=== PATIENT | female | born 1965 | race Caucasian/White ===

== ENCOUNTER → 2018-12-06 10:30 | Outpatient (CLI) | payer OTHER, SELFPAY ==
--- NOTE | 2018-12-06 | DI.RAD.S_ITS ---
PROCEDURE: FL BARIUM SWALLOW INDICATIONS: Dyskinesia of esophagus COMPARISON: None. FINDINGS: Function: There is normal esophageal peristalsis. There was moderate spontaneous and elicited gastroesophageal reflux. Morphology: Air-contrast images demonstrate normal mucosal morphology. Single contrast views show no esophageal strictures, extrinsic mass effects, or diverticula. Limited images of the stomach demonstrate normal appearance. IMPRESSION: Moderate spontaneous and elicited gastroesophageal reflux without evidence of gastric or esophageal mass, or esophageal stricture or erosions. No aspiration seen. Dictated by: Umang Campos M.D. on 12/06/2018 at 11:51 Approved by: Umang Campos M.D. on 12/06/2018 at 11:52
== END ==
PROVIDERS: PCP Family Medicine; Visit Provider Family Medicine
DX: K22.4 Dyskinesia of esophagus (principal); K21.9 Gastro-esophageal reflux disease without esophagitis
CPT/HCPCS: 74220

== ENCOUNTER → 2019-09-18 10:38 | Outpatient (CLI) | payer OTHER, SELFPAY | PROVIDERS: PCP Family Medicine; Referring Provider Physician Assistant; Visit Provider Physician Assistant | DX: Z01.83 Encounter for blood typing (principal) | CPT/HCPCS: 36415; 86900; 86901 ==

== ENCOUNTER → 2019-12-02 13:58 | Outpatient (CLI) | payer OTHER, MEDICAID, SELFPAY ==
--- NOTE | 2019-12-02 14:28 | DI.MG.S_ITS ---
Patient Name: TANNER YUEN date: 1965 Sex: F Attending Physician: Erwin Indications: Date: 12/02/2019 14:26 At the request of: ALMAS JOSE Procedure: MM screening mammo BI BILATERAL DIGITAL SCREENING MAMMOGRAM 3D/2D WITH CAD: 12/02/2019 CLINICAL: Routine screening. Comparison is made to exams dated: 03/05/2017 mammogram, 11/08/2014 mammogram - [facility], and 02/09/2013 mammogram - [facility]. The tissue of both breasts is heterogeneously dense. This may lower the sensitivity of mammography. Current study was also evaluated with a Computer Aided Detection (CAD) system. No significant masses, calcifications, or other findings are seen in either breast. There has been no significant interval change. IMPRESSION: NEGATIVE There is no mammographic evidence of malignancy. A 1 year screening mammogram is recommended. This exam was interpreted at Station ID: [id number]. NOTE: For mammograms, a report in lay terms will be sent to the patient. Approximately 15% of breast malignancies will not be visualized mammographically. In the management of a palpable breast mass, a negative mammogram must not discourage biopsy of a clinically suspicious lesion. Electronically Signed By: Cooper puente/rajwinder:12/04/2019 09:20:39 letter sent: Normal Exam ACR BI-RADS Category 1: Negative 3341F
== END ==
PROVIDERS: PCP Family Medicine; Referring Provider Family Medicine; Visit Provider Family Medicine
DX: Z12.31 Encounter for screening mammogram for malignant neoplasm of breast (principal)
CPT/HCPCS: 77063; 77067

== ENCOUNTER → 2020-07-21 15:00 | Outpatient (CLI) | payer OTHER, MEDICAID, SELFPAY ==
--- NOTE | 2020-07-21 15:02 | DI.RAD.S_ITS ---
PROCEDURE: XR LUMBAR SPINE 2-3V INDICATIONS: worsening low back pain TECHNIQUE: 3 views of the lumbar spine were acquired. COMPARISON: None. FINDINGS: Bones: 5 [id number] vertebrae are present. Vertebral body heights are maintained. There is minimal dextrocurvature of the lumbar spine. Intervertebral disc spaces are maintained. There is minimal endplate degenerative changes of the lumbar spine. Mild facet arthropathy worse at the lumbosacral junction. Soft tissues: Overlying bowel gas pattern is normal. Pelvic phleboliths. IMPRESSION: Mild multilevel lumbar spondylopathy without evidence of an acute osseous abnormality. Dictated by: on 07/21/2020 at 14:15 Approved by: on 07/21/2020 at 14:18
== END ==
PROVIDERS: PCP Physician Assistant; Referring Provider Physician Assistant; Visit Provider Physician Assistant
DX: M54.5 Low back pain (principal); M48.8X6 Other specified spondylopathies, lumbar region
CPT/HCPCS: 72100

== ENCOUNTER → 2021-01-03 16:06 | Outpatient (CLI) | payer OTHER, SELFPAY | PROVIDERS: PCP Physician Assistant; Visit Provider Physician Assistant | DX: R30.0 Dysuria (principal) | CPT/HCPCS: 87077; 87086; 87186 ==

== ENCOUNTER → 2021-06-20 11:12 | Outpatient (CLI) | payer OTHER, SELFPAY ==
--- NOTE | 2021-06-20 11:13 | DI.MG.S_ITS ---
BILATERAL DIGITAL SCREENING MAMMOGRAM 3D/2D WITH CAD: 06/20/2021 CLINICAL: Routine screening. Comparison is made to exams dated: 12/02/2019 mammogram, 03/05/2017 mammogram, and 11/08/2014 mammogram - [facility]. The tissue of both breasts is heterogeneously dense. This may lower the sensitivity of mammography. Current study was also evaluated with a Computer Aided Detection (CAD) system. No significant masses, calcifications, or other findings are seen in either breast. There has been no significant interval change. IMPRESSION: NEGATIVE There is no mammographic evidence of malignancy. A 1 year screening mammogram is recommended. This exam was interpreted at Station ID: [id number]. NOTE: For mammograms, a report in lay terms will be sent to the patient. Approximately 15% of breast malignancies will not be visualized mammographically. In the management of a palpable breast mass, a negative mammogram must not discourage biopsy of a clinically suspicious lesion. Electronically Signed By: Tristan Browning acr/penrad:06/20/2021 12:07:59 letter sent: Normal Exam ACR BI-RADS Category 1: Negative 3341F
== END ==
PROVIDERS: PCP Physician Assistant; Referring Provider Physician Assistant; Visit Provider Physician Assistant
DX: Z12.31 Encounter for screening mammogram for malignant neoplasm of breast (principal)
CPT/HCPCS: 77063; 77067

== ENCOUNTER → 2021-07-29 13:55 | Outpatient (CLI) | payer OTHER, SELFPAY | PROVIDERS: PCP Physician Assistant; Visit Provider Physician Assistant | DX: N39.0 Urinary tract infection, site not specified (principal) | CPT/HCPCS: 87077; 87086; 87186 ==

== ENCOUNTER → 2021-09-15 13:12 | Outpatient (CLI) | payer OTHER, MEDICAID, SELFPAY ==
[2021-09-15 20:29] LABS: Amorphous Sediment Urine 3+; Bacteria Urine Few (2-10); Culture Indicated Urine Cult Not Indicated; RBC Urine 1-5/HPF (0-5/HPF); Sperm Urine 2; Squamous Epithelial Cell Urine 10-30 /HPF (0-5/HPF); WBC Urine 5-10/HPF (0-5/HPF)
== END ==
PROVIDERS: PCP Physician Assistant; Visit Provider Family Medicine
DX: N39.0 Urinary tract infection, site not specified (principal)
CPT/HCPCS: 81015; 87077; 87086; 87186

== ENCOUNTER → 2022-08-12 13:28 | Outpatient (CLI) | payer OTHER, MEDICAID, SELFPAY ==
[2022-08-12 19:56] LABS: Add Manual Diff / Slide Review NO; Basophils Absolute Auto 0 /uL (0-100); Basophils Percent Auto 0.5 % (0-2); Eosinophils Absolute Auto 0 /uL (0-450); Eosinophils Percent Auto 0.7 % (2-4); Hematocrit 39.5 % (36-46); Hemoglobin 13.6 g/dL (12.0-16.0); Lymphocytes Absolute Auto 2000 /uL (1100-4500); Lymphocytes Percent Auto 41.7 % (25-40); Mean Corpuscular HGB Conc 34.5 % (30-36); Mean Corpuscular Hemoglobin 31.2 PG (26-34); Mean Corpuscular Volume 90.3 fL (80-100); Monocytes Absolute Auto 400 /uL (0-900); Monocytes Percent Auto 7.8 % (3-14); Neutrophils Absolute Auto 2400 /uL (1500-7000); Neutrophils Percent Auto 49.3 % (50-75); Platelet Count 216 X10^3/uL (150-400); Red Blood Cell Count 4.38 X10^6/uL (4.0-5.2); Red Cell Distribution Width 12.7 % (11.6-14.8); White Blood Cell Count 4.9 X10^3/uL (4.5-11.0)
[2022-08-12 20:03] LABS: Alanine Aminotransferase 23 IU/L (<35); Albumin 3.9 g/dL (3.5-5.0); Albumin Globulin Ratio 1.5 (1.0-2.8); Alkaline Phosphatase 72 U/L (38-126); Aspartate Aminotransferase 27 IU/L (14-36); BUN Creatinine Ratio 20.8 (6-22); Bilirubin Total 0.7 mg/dL (0.2-1.3); Blood Urea Nitrogen 16 mg/dL (7-17); C-Reactive Protein Quant < 0.5 mg/dL (<1.0); Carbon Dioxide 28 mmol/L (22-32); Chloride 103 mmol/L (98-107); Estimated Glomerular Filt Rate > 60 mL/min (>60); Globulin 2.6 g/dL (1.7-4.1); Glucose 92 mg/dL (70-100); HEMOLYSIS < 15 (0-50); Potassium 3.7 mmol/L (3.4-5.1); Sodium 137 mmol/L (137-145); Total Protein 6.5 g/dL (6.3-8.2)
[2022-08-12 20:06] LABS: Rheumatoid Factor 34.2 IU/mL (<12.0)
[2022-08-12 20:34] LABS: TSH w/ Reflex to FT4 1.44 uIU/mL (0.47-4.68)
[2022-08-12 20:39] LABS: Erythrocyte Sedimentation Rate 7 MM/HR (0-20)
[2022-08-18 17:53] LABS: ANA Screen, IFA Negative (.)
== END ==
PROVIDERS: PCP Physician Assistant; Visit Provider Physician Assistant Medical
DX: M79.646 Pain in unspecified finger(s) (principal); F41.9 Anxiety disorder, unspecified; G89.29 Other chronic pain; R51.9 Headache, unspecified; Z13.220 Encounter for screening for lipoid disorders; Z13.6 Encounter for screening for cardiovascular disorders; Z79.899 Other long term (current) drug therapy
CPT/HCPCS: 80053; 84443; 85025; 85651; 86038; 86140; 86430

== ENCOUNTER → 2022-08-21 15:02 | Outpatient (CLI) | payer OTHER, MEDICAID, SELFPAY ==
--- NOTE | 2022-08-21 15:05 | DI.MG.S_ITS ---
BILATERAL DIGITAL SCREENING MAMMOGRAM 3D/2D WITH CAD: 08/21/2022 CLINICAL: Routine screening. Comparison is made to exams dated: 06/20/2021 mammogram and 12/02/2019 mammogram - [facility]. Both breasts are heterogeneously dense, which may obscure small masses (category c / 51-75% glandular tissue). Current study was also evaluated with a Computer Aided Detection (CAD) system. No significant masses, calcifications, or other findings are seen in either breast. There has been no significant interval change. IMPRESSION: NEGATIVE There is no mammographic evidence of malignancy. A 1 year screening mammogram is recommended. Based on the Tyrer Cuzick model (a risk assessment model) the patient's lifetime risk is 11.2% and her 10 year risk is 3.2%. According to the ACR, ACS, and NCCN guidelines, an annual breast MRI exam along with mammogram is recommended if the patient's lifetime risk is 20% or greater. This exam was interpreted at Station ID: [id number]. NOTE: For mammograms, a report in lay terms will be sent to the patient. Approximately 15% of breast malignancies will not be visualized mammographically. In the management of a palpable breast mass, a negative mammogram must not discourage biopsy of a clinically suspicious lesion. Electronically Signed By: Gigi lopez/rajwinder:08/21/2022 16:31:55 letter sent: Normal Exam ACR BI-RADS Category 1: Negative 3341F
== END ==
PROVIDERS: PCP Physician Assistant; Referring Provider Physician Assistant; Visit Provider Physician Assistant
DX: Z12.31 Encounter for screening mammogram for malignant neoplasm of breast (principal)
CPT/HCPCS: 77063; 77067

== ENCOUNTER → 2022-10-11 11:17 | Outpatient (CLI) | payer OTHER, SELFPAY ==
[2022-10-12 22:18] LABS: Adenovirus F 40/41 Not Detected (Not Detect); Astrovirus Not Detected (Not Detect); Campylobacter Not Detected (Not Detect); Clostridium difficile toxin AB Not Detected (Not Detect); Cryptosporidium Not Detected (Not Detect); Cyclospora cayetanensis Not Detected (Not Detect); Entamoeba histolytica Not Detected (Not Detect); Enteroaggregative E.coli Not Detected (Not Detect); Enteropathogenic E.coli Not Detected (Not Detect); Enterotoxigenic E.coli It/st Not Detected (Not Detect); Giardia lamblia Not Detected (Not Detect); Norovirus GI/GII Not Detected (Not Detect); Plesiomonsa shigelloides Not Detected (Not Detect); Rotavirus A Not Detected (Not Detect); Salmonella Not Detected (Not Detect); Sapovirus Not Detected (Not Detect); Shiga-like toxin-prod E.coli Not Detected (Not Detect); Shigella/Enteroinvasive E.coli Not Detected (Not Detect); Vibrio Not Detected (Not Detect); Vibrio cholerae Not Detected (Not Detect); Yersinia enterocolitica Not Detected (Not Detect)
[2022-10-14 14:36] LABS: Fecal Immunochemical Test Negative (Negative)
== END ==
PROVIDERS: PCP Physician Assistant; Referring Provider Physician Assistant Medical; Visit Provider Physician Assistant Medical
DX: R19.7 Diarrhea, unspecified (principal); Z12.11 Encounter for screening for malignant neoplasm of colon
CPT/HCPCS: 82274; 87045; 87329; 87507; 87899

== ENCOUNTER → 2022-10-22 14:39 | Outpatient (CLI) | payer OTHER, SELFPAY ==
--- NOTE | 2022-10-22 14:40 | DI.US.S_ITS ---
PROCEDURE: US PELVIC COMPLETE INDICATIONS: DUB TECHNIQUE: Real-time scanning was performed of the pelvic organs, with image documentation. Additional endovaginal scanning was necessary due to incomplete visualization of the adnexal and endometrial structures by transabdominal scanning. COMPARISON: [facility], US, PELVIC COMPLETE, 10/27/2011, 12:33. FINDINGS: Uterus: Uterus is anteverted and normal in size at 4.1 x 2.1 x 3.1 cm. The myometrium contains a small intramural fibroid measuring 11 mm. The endometrium measures 4 mm combined thickness. Echogenic endometrial filling defect measuring 3 mm. Ovaries: The right ovary measures 2.1 x 1.2 x 1.5 cm, with a calculated ovarian volume of 2 cc. The left ovary is surgically absent. Normal appearance of the right ovary. Other: No pathologic free abdominal or pelvic fluid. IMPRESSION: Echogenic filling defect within the endometrium measuring 3 mm. Findings concerning for a polyp or small submucosal fibroid, less likely malignancy. We strive to produce accurate, complete, and clear reports of imaging services. To assist us in improving patient care, this report was composed using standard report templates and voice recognition software. Therefore, it may contain abnormal punctuation, insertions and/or omissions. Occasional wrong-word or sound-alike substitutions may occur. Though we review the report and make efforts to correct it, we do recommend that the report be read carefully in proper context to recognize any text inaccuracies. Dictated by: Yaya Pacheco M.D. on 10/22/2022 at 17:07 Approved by: Yaya Pacheco M.D. on 10/22/2022 at 17:08
== END ==
PROVIDERS: PCP Physician Assistant; Referring Provider Specialist; Visit Provider Specialist
DX: N93.9 Abnormal uterine and vaginal bleeding, unspecified (principal)
CPT/HCPCS: 76830; 76856; 93976

== ENCOUNTER → 2022-10-26 13:26 | Outpatient (CLI) | payer OTHER, SELFPAY ==
[2022-10-26 19:40] LABS: Alanine Aminotransferase 23 IU/L (<35); Albumin Globulin Ratio 1.3 (1.0-2.8); Alkaline Phosphatase 60 U/L (38-126); Aspartate Aminotransferase 27 IU/L (14-36); Bilirubin Total 0.7 mg/dL (0.2-1.3); Blood Urea Nitrogen 19 mg/dL (7-17); Carbon Dioxide 31 mmol/L (22-32); Chloride 102 mmol/L (98-107); Estimated Glomerular Filt Rate > 60 mL/min (>60); Glucose 95 mg/dL (70-100); HEMOLYSIS < 15 (0-50); Sodium 137 mmol/L (137-145)
[2022-10-26 19:45] LABS: Add Manual Diff / Slide Review NO; Basophils Absolute Auto 100 /uL (0-100); Basophils Percent Auto 1.1 % (0-2); Eosinophils Absolute Auto 0 /uL (0-450); Eosinophils Percent Auto 0.6 % (2-4); Hematocrit 39.4 % (36-46); Hemoglobin 13.9 g/dL (12.0-16.0); Lymphocytes Absolute Auto 1700 /uL (1100-4500); Lymphocytes Percent Auto 33.7 % (25-40); Mean Corpuscular HGB Conc 35.4 % (30-36); Mean Corpuscular Hemoglobin 31.9 PG (26-34); Mean Corpuscular Volume 90.3 fL (80-100); Monocytes Absolute Auto 400 /uL (0-900); Monocytes Percent Auto 6.8 % (3-14); Neutrophils Absolute Auto 3000 /uL (1500-7000); Neutrophils Percent Auto 57.8 % (50-75); Platelet Count 201 X10^3/uL (150-400); Red Blood Cell Count 4.37 X10^6/uL (4.0-5.2); Red Cell Distribution Width 12.4 % (11.6-14.8); White Blood Cell Count 5.2 X10^3/uL (4.5-11.0)
[2022-10-26 20:01] LABS: Free T3, Triiodothyronine Free 3.97 pg/mL (2.77-5.27)
== END ==
PROVIDERS: PCP Physician Assistant; Visit Provider Physician Assistant Medical
DX: R19.7 Diarrhea, unspecified (principal)
CPT/HCPCS: 80053; 84443; 84481; 85025

== ENCOUNTER 2022-11-09 14:22 | Day surgery (SDC) | payer OTHER, SELFPAY ==
[2022-11-04 09:00] VITALS: BMI 18.8
--- NOTE | 2022-11-09 | PATH_ITS ---
[facility] Accession Number: [id number] No. of containers..01 Tissue . 01 Material submitted: . endometrium - ENDOMETRIAL BX AND CURRETTINGS . 01 Diagnosis: Endometrium, Biopsy and Curettage: Endometrial polyp fragments. Negative for neoplasia. V 11/17/2022 1558 Local . 01 Electronically signed: . Linda Hernandez MD, Pathologist NPI- [id number] . 01 Gross description: . ENDOMETRIAL BX AND CURRETTINGS: Received in formalin are minute fragments of mucoid and hemorrhagic material measuring 0.4 x 0.4 x 0.2 cm in aggregate. Submitted in toto in 1 cassette. /ROGER 11/13/2022 1922 Local . 01 Pathologist provided ICD-10: N84.0 . 01 CPT . 383094 Specimen Comment: A courtesy copy of this report has been sent to [phone] Performed at: 01 [facility] [address] [place] [address], [place], [place] [id number] MD Cooper Nichols MD Phone: [phone]
[2022-11-09 14:49] VITALS: BMI 18.8
[2022-11-09 14:58] VITALS: BP 123/87; PULSE 82; RESP 16; TEMP 36.6; O2SAT 99
[2022-11-09] MEDS: LACTATED RINGERS 1,000 ML 100 ML IV (15:07)
[2022-11-09] MEDS: SCOPOLAMINE 1 PATCH TOP (15:22)
--- NOTE | 2022-11-09 16:02 | SUR.OPER ---
Lithotomy on padded OR bed, head on pillow, arms secured on padded arm boards at <90 degrees abduction. Legs secured in padded yellow fins stirrups.
--- NOTE | 2022-11-09 16:02 | PM.PREOP ---
Pre-operative Note COVID-19 Criteria for continued procedure: Expected advancement of disease process Interval Note History & Physical reviewed/Exam performed by Physician: Yes Changes to H&P: No
--- NOTE | 2022-11-09 16:03 | PM.GYNHP.1 ---
History of Present Illness History of Present Illness Reason for admission: vaginal bleeding (Postmenopausal bleeding) Narrative: Hafsa Morton is a 57 year old female admitted for hysteroscopy for postmenopausal bleeding with probable polyp on ultrasound [facility] Medical History (Updated 11/09/22 @ 16:05 by Cammy Mariee MD) Chicken pox (~1972) Cyst of ovary Encounter for screening for colorectal malignant neoplasm in high risk patient Herpes (~1990) Low back pain Migraine (~2011) Noninfective gastroenteritis and colitis, unspecified Recurrent UTI Surgical History Anesthesia History of appendectomy (~2017) History of right oophorectomy (~2012) Family History (Updated 10/25/22 @ 20:30 by Evelin Israel) Father Cancer Grandfather History of heart disease Grandfather Cancer Grandmother Cancer Social History household members: spouse Smoking Status: Never smoker alcohol intake: never Meds Home Medications and Allergies Home Medications Medication Instructions Recorded Confirmed Type estradiol 0.01% (0.1 mg/gram) 1 g vaginal 2XW #42.5 grams 08/03/22 11/09/22 Rx vaginal cream (Estrace) triazolam 0.125 mg tablet See Rx Instructions PO .COMPLEX 08/17/22 11/09/22 Rx travel/flight anxiety #10 tabs sumatriptan succinate 100 mg tablet See Rx Instructions .Route 09/24/22 11/09/22 Rx .COMPLEX #9 tabs Allergies Allergy/AdvReac Type Severity Reaction Status Date / Time No Known Drug Allergies Allergy Verified 11/09/22 14:44 Review of Systems Review of Systems Narrative: Patient complains of intermittent vaginal bleeding. No fevers. No pain. Exam Vital Signs (past 8 hours): - 11/09/22 14:58 Temperature 97.9 F Pulse Rate 82 Respiratory Rate 16 Blood Pressure 123/87 Pulse Oximetry 99 Oxygen Delivery Method Room Air Oxygen Delivery Method Room Air Narrative Exam Narrative: HEENT exam within normal limits. Lungs are clear to auscultation percussion. Heart is regular rate and rhythm no S3-S4 murmurs. Abdomen is soft, nontender. Normal external genitalia. Atrophic vagina and cervix. Uterus is not enlarged, nontender. No adnexal masses or tenderness. Extremities without edema and nontender. Assessment & Plan Assessment and plan (1) Vaginal spotting: Status: Acute (2) Endometrial thickening on ultrasound: Status: Acute (3) Preoperative exam for gynecologic surgery: Status: Acute Assessment & Plan narrative: Patient with postmenopausal vaginal spotting and probable endometrial polyp on ultrasound for hysteroscopy D&C. Consent form for hysteroscopy D&C was reviewed with the patient. Risk of reaction to medication or anesthesia, minimal risk of infection, minimal risk of bleeding, perforation of the uterus that could require additional surgery to repair damage to internal structures such as bowel, bladder, ureters. Continued bleeding despite procedure. Consent form signed and questions answered. Time Spent With Patient Time with patient: less than 30 minutes
[2022-11-09 16:48] VITALS: BP 129/86; PULSE 83; RESP 15; TEMP 36.1; O2SAT 99
--- NOTE | 2022-11-09 16:52 | PM.OP.1 ---
Operative Date/Time/Diagnoses Date of procedure: 11/09/22 Time of procedure: 16:52 Pre-op diagnosis: Postmenopausal bleeding with presumed endometrial polyp on ultrasound Post-op diagnosis: same Procedure & Clinicians Procedure: Hysteroscopy with resection of intracavitary mass and D&C Same procedure as scheduled: Yes Indications: Postmenopausal bleeding with mass seen on ultrasound suggestive of endometrial polyp Surgeon: Cammy Mariee Click Yes if Unassisted: Yes Anesthesia Type: General Operative Notes Findings: Small intracavitary mass that appears to be a intracavitary fibroid or polyp. Endocervical polyp. No other abnormalities. Thin endometrium. Specimen(s): other (Endometrial biopsy and curettage) Estimated Blood Loss (mL): 5 Blood products transfused: none Procedure in detail: The patient was brought to the operating room where she underwent general anesthesia. She was placed in low stirrups She was prepped and draped in usual sterile fashion with pulsatile stockings in place and functional, warming in place. A check system was reviewed with staff in the room prior to beginning the case. Her bladder was drained with in and out catheter. A single-tooth tenaculum was placed on the anterior lip of the cervix and the uterus dilated to #8 Hegar dilator. The hysteroscope was placed into the uterus with a sorbitol solution running and under constant suction. The resecting loop set at 80 W of cutting was used to resect the mass down to the level of the endometrium. A endometrial curettage was performed. The mass and the endometrial curettage was sent to pathology. The patient went to recovery room in good condition counts of instruments and sponges were correct. Estimated blood loss less than 5 mL. The sorbitol solution I=O approximately 2000 mL. Complications: none Post-operative Condition: stable Disposition: same day surgery Plan for aftercare: Home when awake and stable. Treatment and follow-up based on results of pathology.
[2022-11-09 16:53] VITALS: BP 125/84; PULSE 81; RESP 15; O2SAT 98
[2022-11-09 16:59] VITALS: BP 121/81; PULSE 73; RESP 18; O2SAT 96
[2022-11-09 17:03] VITALS: BP 116/77; PULSE 78; RESP 16; O2SAT 96
== END 2022-11-09 17:28 | disposition home or self-care (01) ==
PROVIDERS: PCP Physician Assistant; Referring Provider Specialist; Visit Provider Specialist
PROC: 0UDB8ZZ Extraction of Endometrium, Via Natural or Artificial Opening Endoscopic (ICD-10-PCS; CPT 58558; principal; 2022-11-09 15:45)
DX: N95.0 Postmenopausal bleeding (principal)
CPT/HCPCS: 58558; J1100; J1885; J2405; J2704; J3010

== ENCOUNTER → 2023-03-03 12:17 | Outpatient (CLI) | payer OTHER, SELFPAY ==
--- NOTE | 2023-03-03 12:19 | DI.US.S_ITS ---
PROCEDURE: US PELVIC COMPLETE INDICATIONS: POST MENOPAUSAL BLEEDING TECHNIQUE: Real-time scanning was performed of the pelvic organs, with image documentation. Additional endovaginal scanning was necessary due to incomplete visualization of the adnexal and endometrial structures by transabdominal scanning. COMPARISON: [facility], , US PELVIC COMPLETE, 10/22/2022, 15:23. FINDINGS: Uterus: Uterus is anteverted and normal in size at 4.4 x 1.9 x 2.6 cm. The myometrium is homogeneous. The endometrium measures 5 mm combined thickness. Mild fluid in the endometrial canal. Ovaries: The right ovary measures 1.7 x 1.1 x 1.4 cm, with a calculated ovarian volume of 1.4 cc. The left ovary has been removed. Other: No pathologic free abdominal or pelvic fluid. IMPRESSION: Mild fluid in the endometrial canal. We strive to produce accurate, complete, and clear reports of imaging services. To assist us in improving patient care, this report was composed using standard report templates and voice recognition software. Therefore, it may contain abnormal punctuation, insertions and/or omissions. Occasional wrong-word or sound-alike substitutions may occur. Though we review the report and make efforts to correct it, we do recommend that the report be read carefully in proper context to recognize any text inaccuracies. Dictated by: Angie Nunn M.D. on 03/03/2023 at 22:31 Approved by: Angie Nunn M.D. on 03/03/2023 at 22:31
== END ==
PROVIDERS: PCP Physician Assistant; Referring Provider Obstetrics & Gynecology; Visit Provider Obstetrics & Gynecology
DX: N95.0 Postmenopausal bleeding (principal)
CPT/HCPCS: 76830; 76856

== ENCOUNTER → 2023-05-17 10:04 | Outpatient (CLI) | payer OTHER, SELFPAY | PROVIDERS: PCP Physician Assistant; Visit Provider Physician Assistant | DX: B37.9 Candidiasis, unspecified (principal) | CPT/HCPCS: 87798; 87801 ==

== ENCOUNTER → 2023-09-13 09:50 | Outpatient (CLI) | payer OTHER, SELFPAY ==
[2023-09-13 19:45] LABS: Alanine Aminotransferase 23 IU/L (<35); Albumin 4.2 g/dL (3.5-5.0); Albumin Globulin Ratio 1.5 (1.0-2.8); Alkaline Phosphatase 74 U/L (38-126); Aspartate Aminotransferase 27 IU/L (14-36); BUN Creatinine Ratio 28.4 (6-22); Bilirubin Total 0.6 mg/dL (0.2-1.3); Blood Urea Nitrogen 19 mg/dL (7-17); Calcium 9.4 mg/dL (8.4-10.2); Carbon Dioxide 26 mmol/L (22-32); Chloride 107 mmol/L (98-107); Cholesterol 249 mg/dL (140-199); Estimated Glomerular Filt Rate > 60 mL/min (>60); Globulin 2.8 g/dL (1.7-4.1); Glucose 96 mg/dL (70-100); Potassium 4.1 mmol/L (3.4-5.1); Sodium 139 mmol/L (137-145); Triglycerides 77 mg/dL (35-150)
[2023-09-13 19:47] LABS: Add Manual Diff / Slide Review NO; Basophils Absolute Auto 0 /uL (0-100); Basophils Percent Auto 0.7 % (0-2); Eosinophils Absolute Auto 100 /uL (0-450); Eosinophils Percent Auto 1.1 % (2-4); Hematocrit 41.8 % (36-46); Hemoglobin 14.5 g/dL (12.0-16.0); Lymphocytes Absolute Auto 2000 /uL (1100-4500); Lymphocytes Percent Auto 43.6 % (25-40); Mean Corpuscular HGB Conc 34.7 % (30-36); Mean Corpuscular Hemoglobin 31.6 PG (26-34); Mean Corpuscular Volume 90.8 fL (80-100); Monocytes Absolute Auto 300 /uL (0-900); Monocytes Percent Auto 7.3 % (3-14); Neutrophils Absolute Auto 2200 /uL (1500-7000); Neutrophils Percent Auto 47.3 % (50-75); Platelet Count 244 X10^3/uL (150-400); Red Cell Distribution Width 12.1 % (11.6-14.8); White Blood Cell Count 4.6 X10^3/uL (4.5-11.0)
[2023-09-13 19:53] LABS: HEMOLYSIS 19 (0-50)
[2023-09-13 19:54] LABS: HDL Cholesterol 114 mg/dL (40-60); LDL Cholesterol Calculated 120 mg/dL (<100)
[2023-09-13 20:18] LABS: TSH w/ Reflex to FT4 2.66 uIU/mL (0.47-4.68)
[2023-09-13 20:46] LABS: HIV 1 & 2 Ab/Ag 4th Gen Combo NEGATIVE (NEGATIVE); Hep C Virus Ab w/Reflex Quant NEGATIVE s/c (NEGATIVE)
== END ==
PROVIDERS: PCP Physician Assistant; Visit Provider Physician Assistant
DX: Z13.6 Encounter for screening for cardiovascular disorders (principal); Z11.4 Encounter for screening for human immunodeficiency virus [HIV]; Z11.59 Encounter for screening for other viral diseases; R59.0 Localized enlarged lymph nodes; Z79.899 Other long term (current) drug therapy
CPT/HCPCS: 80053; 80061; 84443; 85025; 86803; 87389

== ENCOUNTER → 2023-09-14 14:09 | Outpatient (CLI) | payer OTHER, SELFPAY | PROVIDERS: PCP Physician Assistant; Visit Provider Physician Assistant Medical | DX: R10.11 Right upper quadrant pain (principal) | CPT/HCPCS: 87086 ==

== ENCOUNTER → 2023-12-10 12:21 | Outpatient (CLI) | payer OTHER, SELFPAY ==
--- NOTE | 2023-12-10 12:29 | DI.US.S_ITS ---
PROCEDURE: US SOFT TISSUE HEAD AND NECK INDICATIONS: enlarged lymph nodes/dentist concerned. TECHNIQUE: Real-time scanning was performed of the neck region of interest, with image documentation. COMPARISON: None. FINDINGS: Targeted ultrasound of the neck demonstrates no cervical adenopathy. Largest lymph nodes measure 5 millimeter short axis. These maintain a normal reniform shape and fatty hilum. IMPRESSION: Normal cervical chain lymph nodes. Dictated by: Yaya Pacheco M.D. on 12/10/2023 at 14:06 Approved by: Yaya Pacheco M.D. on 12/10/2023 at 14:07
--- NOTE | 2023-12-10 12:29 | DI.MG.S_ITS ---
BILATERAL DIGITAL SCREENING MAMMOGRAM 3D/2D WITH CAD: 12/10/2023 CLINICAL: Routine screening. Comparison is made to exams dated: 08/21/2022 mammogram, 06/20/2021 mammogram, and 12/02/2019 mammogram - [facility]. Both breasts are heterogeneously dense, which may obscure small masses (category c / 51-75% glandular tissue). Current study was also evaluated with a Computer Aided Detection (CAD) system. There is an asymmetry in the right breast middle depth central to the nipple seen on the mediolateral oblique view only. This is more prominent. No other significant masses, calcifications, or other findings are seen in either breast. IMPRESSION: INCOMPLETE: NEEDS ADDITIONAL IMAGING EVALUATION The asymmetry in the right breast is indeterminate. Additional views with possible ultrasound are recommended. Based on the Tyrer Cuzick model (a risk assessment model) the patient's lifetime risk is 10.9% and her 10 year risk is 3.6%. According to the ACR, ACS, and NCCN guidelines, an annual breast MRI exam along with mammogram is recommended if the patient's lifetime risk is 20% or greater. This exam was interpreted at Station ID: [id number]. NOTE: For mammograms, a report in lay terms will be sent to the patient. Approximately 15% of breast malignancies will not be visualized mammographically. In the management of a palpable breast mass, a negative mammogram must not discourage biopsy of a clinically suspicious lesion. Electronically Signed By: Jay Hilliard M.D. [facility] [place]:12/10/2023 16:42:49 letter sent: Additional Imaging Needed ACR BI-RADS Category 0: Incomplete 3340F
--- NOTE | 2023-12-10 12:29 | DI.US.S_ITS ---
PROCEDURE: US PELVIC COMPLETE INDICATIONS: post menopausal bleeding TECHNIQUE: Real-time scanning was performed of the pelvic organs, with image documentation. Additional endovaginal scanning was necessary due to incomplete visualization of the adnexal and endometrial structures by transabdominal scanning. COMPARISON: None. FINDINGS: Uterus: Uterus is anteverted and normal in size at 5.6 x 3.1 x 2.4 cm. The myometrium is homogeneous. The endometrium measures 5.3 mm combined thickness. Small volume of fluid in the endometrial cavity. Ovaries: The right ovary measures 1.9 x 1.1 x 1.1 cm, with a calculated ovarian volume of 1.1 cc. The left ovary is surgically absent. The right ovary has a normal sonographic appearance. No adnexal masses are seen. Other: No pathologic free abdominal or pelvic fluid. IMPRESSION: Small volume of fluid in the endometrial cavity consistent with postmenopausal bleeding. Otherwise, unremarkable pelvic ultrasound. Dictated by: Joanna Ford MD, PhD on 12/13/2023 at 12:33 Approved by: Joanna Ford MD, PhD on 12/13/2023 at 12:36
== END ==
LOC: US 12:28
PROVIDERS: PCP Physician Assistant; Referring Provider Physician Assistant; Visit Provider Physician Assistant
DX: R59.0 Localized enlarged lymph nodes (principal); R92.333 Mammographic heterogeneous density, bilateral breasts; Z90.721 Acquired absence of ovaries, unilateral; N95.0 Postmenopausal bleeding
CPT/HCPCS: 76536; 76830; 76856; 77063; 77067

== ENCOUNTER → 2023-12-17 08:32 | Outpatient (CLI) | payer OTHER, SELFPAY ==
--- NOTE | 2023-12-17 08:33 | DI.MG.S_ITS ---
UNILATERAL RIGHT DIGITAL DIAGNOSTIC MAMMOGRAM 3D/2D WITH ADDITIONAL VIEWS: 12/17/2023 CLINICAL: Additional evaluation requested from prior study. Comparison is made to exams dated: 12/10/2023 mammogram, 08/21/2022 mammogram, and 06/20/2021 mammogram [facility]. The breasts are heterogeneously dense, which may obscure small masses (category c / 51-75% glandular tissue). The finding seen on recent screening mammogram did not persist with additional imaging and is consistent with superimposition of normal breast tissue. No significant masses, calcifications, or other findings are seen in the breast. IMPRESSION: NEGATIVE Superimposition of normal breast tissue. No mammographic evidence of malignancy. A 1 year screening mammogram is recommended. Findings and recommendations were conveyed to the patient during today's evaluation. Based on the Tyrer Cuzick model (a risk assessment model) the patient's lifetime risk is 10.9% and her 10 year risk is 3.6%. According to the ACR, ACS, and NCCN guidelines, an annual breast MRI exam along with mammogram is recommended if the patient's lifetime risk is 20% or greater. This exam was interpreted at Station ID: [id number]. NOTE: For mammograms, a report in lay terms will be sent to the patient. Approximately 15% of breast malignancies will not be visualized mammographically. In the management of a palpable breast mass, a negative mammogram must not discourage biopsy of a clinically suspicious lesion. Electronically Signed By: Shelby Villar M.D., Ph.D. eb/:12/17/2023 09:08:59 letter sent: Normal Exam ACR BI-RADS Category 1: Negative 3341F
== END ==
LOC: MAMMO 08:32
PROVIDERS: PCP Physician Assistant; Referring Provider Physician Assistant; Visit Provider Physician Assistant
DX: R92.8 Other abnormal and inconclusive findings on diagnostic imaging of breast (principal); R92.333 Mammographic heterogeneous density, bilateral breasts
CPT/HCPCS: 77065; G0279

== ENCOUNTER 2024-03-17 09:45 | Day surgery (SDC) | payer OTHER, SELFPAY ==
[2024-03-15 11:10] VITALS: BMI 19.3
--- NOTE | 2024-03-17 | PATH_ITS ---
[facility] Accession Number: [id number] No. of containers..01 Tissue . 01 Material submitted: . endometrium - ENDOMETRIAL CURETTINGS . 01 Diagnosis: ENDOMETRIUM, CURETTINGS: Superficial biopsy composed of scant benign, inactive endometrium, please see comment. Negative for atypia, hyperplasia, or malignancy. Benign endocervical glandular epithelium also present. [facility] 03/20/2024 1419 Local . 01 Comment: In this scant and superficial biopsy the findings are suggestive of atrophy. However, clinical and radiologic correlation will be required to ensure that this limited sample is artists' booking representative of the endometrium and adequate for evaluation. . 01 Electronically signed: . Clint Avery MD, Pathologist NPI- [id number] . 01 Gross description: . Received in formalin, labeled with two patient identifiers and endometrial curettings, are multiple farris and dark brown soft tissue fragments admixed with mucoid material aggregating to 2.5 x 1.0 x 0.2 cm. Filtered and submitted in cassette A1. ([id number]) /FRR 03/18/2024 1240 Local . 01 Pathologist provided ICD-10: N95.0 . 01 CPT . 185174 Specimen Comment: A courtesy copy of this report has been sent to [facility] Performed at: [address], [place], [place] [id number] MD Cooper Nichols MD Phone: [phone]
[2024-03-17 10:20] VITALS: BMI 18.2
[2024-03-17 10:24] VITALS: BP 121/74; PULSE 72; RESP 12; TEMP 36.6; O2SAT 98
[2024-03-17] MEDS: LACTATED RINGERS 1,000 ML 42 ML IV (10:40)
--- NOTE | 2024-03-17 10:49 | PM.GYNHP.1 ---
History of Present Illness History of Present Illness Narrative: Hafsa Morton is a 58 year old nulliparous female who presents for scheduled indicated procedure, hysteroscopy with dilation and curettage for definitive surgical evaluation of postmenopausal bleeding with mild EMS thickening on DI-US (5.3mm). Patient was last seen in office by Dr. Mariee 01/19/24 for consultation and was amenable to recommendation for surgical evaluation at that time secondary to marked cervical stenosis noted at time of office exam and prior failed outpatient embx due to same. Patient states that since last office encounter her bleeding has resolved with increasing frequency of vaginal estrace. In discussion of importance of excluding underlying EIN patient affirms desire to proceed with procedure today. She affirms medical history as per EMR, denies significant changes in personal or family health history since time of last encounter. She did take her vaginal misoprostol yesterday evening for purposes of cervical ripening, reports mild cramping but no bleeding [facility] Medical History (Updated 01/19/24 @ 15:11 by Cammy Mariee MD) Status post hysteroscopy (~11/2022) Endometrial thickening on ultrasound Polyp of cervix Recurrent UTI Encounter for screening for colorectal malignant neoplasm in high risk patient Noninfective gastroenteritis and colitis, unspecified Migraine (~2011) Chicken pox (~1972) Herpes (~1990) Cyst of ovary Low back pain Surgical History (Updated 03/15/24 @ 10:15 by Jessica Orozco RN) History of hysteroscopy (11/09/22) Anesthesia History of appendectomy (~2017) History of right oophorectomy (~2012) Family History (Updated 10/25/22 @ 20:30 by Evelin Israel) Father Cancer Grandfather History of heart disease Grandfather Cancer Grandmother Cancer Social History household members: spouse Smoking Status: Never smoker alcohol intake: never Meds Home Medications and Allergies Home Medications Medication Instructions Recorded Confirmed Type estradiol 0.01% (0.1 mg/gram) 1 g vaginal 2XW #42.5 grams 09/07/23 01/19/24 Rx vaginal cream (Estrace) alprazolam 0.5 mg tablet 0.5 mg PO ONCE Anxiety over 01/13/24 01/19/24 Rx procedure #1 tab sumatriptan succinate 100 mg tablet See Rx Instructions .Route 01/22/24 03/17/24 Rx .COMPLEX #9 tabs alprazolam 0.5 mg tablet 0.5 mg PO BID PRN flight anxiety 01/25/24 01/25/24 Rx #16 tabs Allergies Allergy/AdvReac Type Severity Reaction Status Date / Time No Known Drug Allergies Allergy Verified 03/17/24 10:19 Review of Systems Review of Systems ROS: Yes All systems reviewed with the patient and are negative except as otherwise documented Exam Vital Signs (past 8 hours): - 03/17/24 10:24 Temperature 97.9 F Pulse Rate 72 Respiratory Rate 12 Blood Pressure 121/74 Pulse Oximetry 98 Oxygen Delivery Method Room Air Oxygen Delivery Method Room Air Const General: cooperative and healthy appearing Nutritional Appearance: average body habitus Orientation: alert, awake and oriented x3 Limitations: mental status not altered Resp Effort & Inspection: normal respiratory effort and able to speak in complete sentences Other: deferred Skin General: no rashes or lesions noted Neuro General: patient alert, patient awake and patient oriented x3 Extrem General: normal to inspection Psych Mental Status: mental status grossly normal Judgment: judgment good Assessment & Plan Assessment and plan (1) Post-menopausal bleeding: Status: Chronic Plan 58yo nulliparous postmenopausal female presents for scheduled procedure, definitive surgical evaluation of postmenopausal bleeding with hysteroscopy, dilation and curettage Patient affirms desire to proceed with procedure as scheduled risks, benefits and alternatives reviewed. operative consent completed anticipated postoperative course reviewed dispo: to OR Time-Based Coding :: [TOTAL MINUTES] spent with patient and on the chart (including review of chart, obtaining history, exam, reviewing outside data, placing orders, documenting exam and treatment plan, and counseling patient) on [DATE].
--- NOTE | 2024-03-17 10:49 | PM.PREOP ---
Pre-operative Note Interval Note History & Physical reviewed/Exam performed by Physician: Yes Changes to H&P: No H&P completed within 30 days and has changed as indicated here:: 03/17/24 ASA Class (for procedural sedation): II
--- NOTE | 2024-03-17 11:25 | SUR.OPER ---
Lithotomy on padded OR bed, head on pillow, arms secured on padded arm boards at <90 degrees abduction. Legs secured in padded yellow fins stirrups.
[2024-03-17 11:38] VITALS: BP 100/71; PULSE 68; RESP 14; TEMP 36.2; O2SAT 98
--- NOTE | 2024-03-17 11:40 | PM.OP.1 ---
Operative Date/Time/Diagnoses Date of procedure: 03/17/24 Time of procedure: 11:40 Pre-op diagnosis: postmenopausal bleeding Post-op diagnosis: same Procedure & Clinicians Procedure: hysteroscopy, dilation and curettage Same procedure as scheduled: Yes Indications: recurrent postmenopausal bleeding Surgeon: Cara Sumner Click Yes if Unassisted: Yes Anesthesia Type: General Operative Notes Findings: normal external female genitalia, stenotic cervix, small intrauterine cavity with scant endometrium, bilateral ostia visualized Closure Type: not applicable Specimen(s): other (endometrial currettings ) Estimated Blood Loss (mL): 2 Procedure in detail: Pt was taken to the operating room, transferred to OR table and anesthesia was induced with placement of LMA.? Pt had her legs placed in Can stirrups and an exam under anesthesia was performed. The patient was prepped and draped in a sterile fashion.? A time out was performed. ?The bladder was emptied via straight catheter in sterile fashion.? A sterile speculum was inserted into the vagina.? The cervix was visualized and grasped anteriorly using a single tooth tenaculum.? The uterus sounded to 6cm and the cervical os was serially dilated using Kimbrough dilators up to 17f to allow for passage of the hysteroscope.? The 5mm 0 degree hysteroscope was then inserted into the uterus with findings as noted.? The hysteroscope was removed and the uterus was sharply curetted until a gritty texture was noted throughout.? The tenaculum was removed and hemostasis was noted at insertion sites.? The speculum was removed and hemostasis was again noted to be excellent.? The patient then had her legs taken out of stirrups.? The patient tolerated the procedure well and without difficulty.? The patient was awakened from anesthesia and taken to PACU in stable condition. Complications: none Post-operative Condition: stable Disposition: PACU Plan for aftercare: dc to home, routine outpatient postop as scheduled
[2024-03-17 11:42] VITALS: BP 94/67; PULSE 70; RESP 16; O2SAT 98
[2024-03-17 11:47] VITALS: BP 101/68; PULSE 71; RESP 14; O2SAT 98
[2024-03-17 11:55] VITALS: BP 104/75; PULSE 70; RESP 15; TEMP 36.2; O2SAT 100
[2024-03-17] MEDS: ACETAMINOPHEN 325 MG TABLET 650 MG PO (12:32)
== END 2024-03-17 12:43 | disposition home or self-care (01) ==
PROVIDERS: PCP Physician Assistant; Referring Provider Obstetrics & Gynecology; Visit Provider Obstetrics & Gynecology
PROC: 0UDB8ZZ Extraction of Endometrium, Via Natural or Artificial Opening Endoscopic (ICD-10-PCS; CPT 58558; principal; 2024-03-17 11:15)
DX: N95.0 Postmenopausal bleeding (principal); N88.2 Stricture and stenosis of cervix uteri
CPT/HCPCS: 58558; J1100; J1885; J2250; J2405; J2704; J3010

== ENCOUNTER → 2025-01-08 10:48 | Outpatient (CLI) | payer BC, SELFPAY ==
[2025-01-08 18:52] LABS: Add Manual Diff / Slide Review NO; Hematocrit 40.2 % (36-46); Hemoglobin 14.2 g/dL (12.0-16.0); Lymphocytes Absolute Auto 1400 /uL (1100-4500); Mean Corpuscular HGB Conc 35.3 % (30-36); Mean Corpuscular Hemoglobin 31.9 PG (26-34); Mean Corpuscular Volume 90.4 fL (80-100); Platelet Count 249 X10^3/uL (150-400)
[2025-01-08 19:24] LABS: Alanine Aminotransferase 19 IU/L (<35); Albumin 4.0 g/dL (3.5-5.0); Albumin Globulin Ratio 1.5 (1.0-2.8); Alkaline Phosphatase 74 U/L (38-126); Blood Urea Nitrogen 16 mg/dL (7-17); Calcium 9.0 mg/dL (8.4-10.2); Carbon Dioxide 28 mmol/L (22-32); Chloride 103 mmol/L (98-107); Cholesterol 256 mg/dL (140-199); Estimated Glomerular Filt Rate > 60 mL/min (>60); Globulin 2.7 g/dL (1.7-4.1); Glucose 104 mg/dL (70-99); HEMOLYSIS < 15 (0-50); Potassium 4.0 mmol/L (3.4-5.1); Sodium 136 mmol/L (137-145); Total Protein 6.7 g/dL (6.3-8.2); Triglycerides 71 mg/dL (35-150)
[2025-01-08 19:39] LABS: HDL Cholesterol 120 mg/dL (40-60)
[2025-01-08 19:53] LABS: TSH w/ Reflex to FT4 2.00 uIU/mL (0.47-4.68)
== END ==
PROVIDERS: PCP Physician Assistant; Visit Provider Physician Assistant
DX: F41.9 Anxiety disorder, unspecified (principal); Z13.6 Encounter for screening for cardiovascular disorders; Z79.899 Other long term (current) drug therapy
CPT/HCPCS: 80053; 80061; 84443; 85025

== ENCOUNTER → 2025-03-14 15:20 | Outpatient (CLI) | payer BC, SELFPAY ==
--- NOTE | 2025-03-14 15:20 | DI.MG.S_ITS ---
MM screening mammo BI: 03/14/2025. BI-RADS: 1 CLINICAL: 59-year old female for bilateral screening mammogram. Tyrer-Cuzick lifetime risk of 7.9%. No personal or first-degree family history of breast cancer. Current reported family history of breast cancer: sister's daughter. PRIOR EXAMS 12/17/2023, 12/10/2023, 08/21/2022, 06/20/2021, MAMMOGRAPHY TECHNIQUE: 2D and 3D (tomosynthesis) digital mammographic views obtained, with additional images as needed for full coverage. Current study was also evaluated with a Computer Aided Detection (CAD) system. DENSITY C. The breasts are heterogeneously dense, which may obscure small masses. MAMMOGRAPHY FINDINGS Bilateral: No suspicious mass, asymmetry, microcalcification, or other abnormality seen. IMPRESSION: * No evidence of malignancy. RECOMMENDATIONS Bilateral * Annual screening mammography. OVERALL ASSESSMENT CATEGORY BI-RADS-1: Negative. The [employer] recommends annual screening mammography beginning at age 40 for women with average risk of breast cancer. ELECTRONICALLY SIGNED: Alexander Adair M.D. on 03/15/2025 at 01:12:58 PM PT Interpreting Station ID: [id number]
== END ==
LOC: MAMMO 15:20
PROVIDERS: PCP Physician Assistant; Referring Provider Physician Assistant; Visit Provider Physician Assistant
DX: Z12.31 Encounter for screening mammogram for malignant neoplasm of breast (principal); R92.333 Mammographic heterogeneous density, bilateral breasts; Z80.3 Family history of malignant neoplasm of breast
CPT/HCPCS: 77063; 77067